=== PATIENT | female | born 1965 | race Caucasian/White ===

== ENCOUNTER 2018-02-03 02:55 | Observation (INO) | payer OTHER ==
[~2018-02-03] VITALS: Ht 157.5 cm; Wt 105.2 kg
[~2018-02-03 02:55] MED LIST: ESCITALOPRAM20 MG PO; ISENTRESS400 MG PO; LABETALOL HCL100 MG PO; PERCOCET 5-3251 EACH PO; PRINZIDE 12.5 M1 TAB PO; SIMVASTATIN20 MG PO; TRUVADA 200 MG-1 TAB PO; ZOFRAN ODT4 MG SL
--- NOTE | 2018-02-03 17:42 | Admission Core Measures ---
Acute Coronary Syndrome (CM) ACS Core Measures Acute Coronary Syndrome Diagnosis No Congestive Heart Failure (NEW) CHF Core Measures Congestive Heart Failure Diagnosis No Cerebrovascular Accident CVA Core Measures CVA/TIA Diagnosis No Venous Thromboembolism VTE Core Maritza (View Protocol) VTE Risk Factors Surgery No Mechanical VTE Prophylaxis d/t N/A MechProphylax Ordered No VTE Pharm Prophylaxis d/t NA PharmProphylax ordered Problem List As ranked by this Provider includes Assessment & Plan 1. Parathyroid adenoma HOME MEDS Home Med List Escitalopram Oxalate 20 MG TAB 1 TAB PO DAILY MENTAL HEALTH (Reported) Hydrochlorothiazide/Lisinopr (Prinzide 12.5 MG-10 MG) 1 TAB TAB 1 TAB PO DAILY HEART (Reported) Labetalol Hydrochloride (Labetalol HCl) 100 MG TAB 1 TAB PO BID HEART ( Reported) Oxycodone HCl/Acetaminophen (Percocet 5-325 MG Tablet) 5 MG-325 MG TABLET 1 TAB PO BID PRN PAIN Simvastatin (Zocor) 20 MG TAB 1 TAB PO QPM CHOLESTEROL (Reported)
[2018-02-03] MEDS ORDERED: PERCOCET 5-3251 EACH PO (17:43)
--- NOTE | 2018-02-03 17:46 | Patient Discharge Instructions ---
Discharge Instructions General Discharge Information You were seen/treated for: Parathyroid adenoma You had these procedures: Excision parathyroid adenoma Watch for these problems: Increasing pain despite the use of pain medication Increasing difficulty swallowing or speaking Difficulty breathing. Increasing redness or drainage from incision Fever greater than 101.5 Do not soak the wound: Yes Other wound care: Keep wound clean and dry Diet Continue normal diet: Yes Recommended Diet: Diabetic Activity Full Activity/No Limits: No Activity Self Limited: Yes Pounds, do NOT lift more than: 20 Acute Coronary Syndrome Inclusion Criteria At DC or during hospital stay patient has or had the following: ACS DIAGNOSIS No Discharge Core Measures Meds if any: Prescribed or Continued at Discharge Meds if any: NOT Prescribed or Continued at Discharge Congestive Heart Failure Inclusion Criteria At DC or during hospital stay patient has or had the following: CHF DIAGNOSIS No Discharge Core Measures Meds if any: Prescribed or Continued at Discharge Meds if any: NOT Prescribed or Continued at Discharge Cerebrovascular accident Inclusion Criteria At DC or during hospital stay patient has or had the following: CVA/TIA Diagnosis No Discharge Core Measures Meds if any: Prescribed or Continued at Discharge Meds if any: NOT Prescribed or Continued at Discharge Venous thromboembolism Inclusion Criteria VTE Diagnosis No VTE Type NONE VTE Confirmed by (Test) NONE Discharge Core Measures - Per Current guidelines, there needs to be overlap - treatment for the first 5 days of Warfarin therapy. - If discharged on Warfarin prior to 5 days of - overlap therapy, the patient will need to be - assessed for post discharge needs including - *Post discharge parental anticoagulation - *Warfarin and/or parental anticoagulation education - *Follow up date to check INR post discharge At least 5 days overlap therapy as Inpatient No Meds if any: Prescribed or Continued at Discharge Note: Overlap Therapy is Warfarin and Anticoagulant Meds if any: NOT Prescribed or Continued at Discharge
--- NOTE | 2018-02-03 19:09 | PN- General Surgery ---
Subjective Subjective: POC Pt recovering in PACU. Only complaint is throat soarness, worse when she swallings, she thinks its from the ET tube. Minimal pain at incision. Denies CP/SOB,LEWIS or dizziness. No N/V. Feelins hungry Objective Vital Signs and I&Os Intake & Output 02/03 1600 02/03 0800 02/03 0000 02/02 1600 02/02 0800 02/02 0000 Intake Total Output Total Balance Patient 230 lb Weight VSS, afebrile Physical Exam: gen- NAD neck- dressing clean and dry, no swelling resp- clear cardiac-RRR Current Medications: Current Medications Sig/Sultana Start time Last Medication Dose Route Stop Time Status Admin Cefazolin Sodium 2,000 MG ONCE 02/03 0000 NR IV 02/03 2359 Fentanyl Citrate 0 .STK-MED ONE 02/03 1039 DC .ROUTE Hydromorphone HCl 0 .STK-MED ONE 02/03 1039 DC .ROUTE Midazolam HCl 0 .STK-MED ONE 02/03 1039 DC .ROUTE Results Last 48 Hours of Labs: Laboratory Tests 02/03 02/03 02/03 02/03 1750 1610 1355 0856 Chemistry Calcium (8.4 - 10.2 mg/dL) 9.7 Albumin (3.5 - 5.0 g/dL) 4.0 PTH Intact (18.4 - 80.1 pg/ML) 24.3 179.4 H 97.5 H Assessment/Plan Assessment/Plan 52yo F with hx of diabetes, htn and hld now SP parathyroidectomy for parathyroid adenoma POD0. stable. post-op calcium level 9.7. To stay for observation to watch for hypocalcimia check calcium levels Q8h x3 clear liquids tonight, can advance as tolerated in AM if no overnight issues sanedrs management dvt ppx- alps and hsq 24h amparo-op abx- ancef dc planning- likely home tomorrow Core Measures Venous Thromboembolism VTE Risk Factors Surgery No Mechanical VTE Prophylaxis d/t N/A MechProphylax Ordered No VTE Pharm Prophylaxis d/t NA PharmProphylax ordered
[2018-02-03 19:30] VITALS: BP 130/70
[2018-02-03 21:39] VITALS: BP 142/96
--- NOTE | 2018-02-03 22:48 | Operative Report ---
Operative/Inv Procedure Report Surgery Date: 02/03/18 Name of Procedure: Parathyroidectomy (left superior) Pre-Operative Diagnosis: primary hyperparathyroidism Post-Operative Diagnosis: same Estimated Blood Loss: scant Surgeon/Rib Stiffener And Heel Dipper: Robert SALGADO,Young ABEL Anesthesia: general endotracheal tube Operative/Procedure Note Note: Patient was placed on the OR table supine, over the thyroid bar, after successful induction of general anesthesia and the timeouts, and setting up the NIMS electrodes for monitoring, the patient's neck from chin to chest were clipped prepped and draped in the usual sterile fashion. A PTH level was drawn at this time. We had already marked a skin crease near the cricoid in Same Day, and then infiltrated local anesthetic and then made this incision with a 15 blade, extending within the medial borders of the sternocleidomastoid muscles, but tending towards the left. The incision was deepened through the subcutaneous fat and subplatysmal flaps, preserving the underlying anterior jugular veins, were made superiorly to the thyroid cartilage and inferiorly not quite to the sternal notch. The midline was identified between the strap muscles and opened vertically and then using an Allis clamp first, the sternohyoid and then the sternal thyroid muscles were and then retracted laterally to the left, off the thyroid towards the carotid sheath, we were limited by the patient's body habitus she was overweight very "deep" neck I had to divide part of the sternal thyroid muscle tubular to clear off the left lobe of the thyroid gland, at this point the dissection was continued using the Harmonic scalpel, and bipolar. Once we identified the lateral border of the left lobe we were able to free it up a little bit without dividing major vessels and rotated medially and it took some time initially but plastered within the capsule posterior medially in the mid to upper lobe we found the parathyroid adenoma which was lobulated, kidney-shaped with a little bit of fat peripherally, and very fragile I felt we preserved it intact once we opened that the thin posterior capsule the procedure became easier, the diameter was about 2 cm, we gently dissected circumferentially preserving the blood supply, also avoiding the recurrent nerve which was close here, and then before excising we had anesthesia draw another PTH, then we excised it and sent it to pathology, and josep another level in 10 min. The highest preexcision level was 179.4, then it dropped to 24.3 after, more than 80%, indicating success. So we checked for hemostasis and then closed by first reapproximating the divided sternothyroid muscle, then the strap muscles over the trachea in the middle paying care not to injure those jugular veins on either side, and then the platysma was reapproximated with a running 3- 0 Vicryl suture as well, then the skin was reapproximated with a running subcuticular 4-0 Biosyn suture followed by Mastisol Steri-Strips Telfa and Tegaderm. Estimated blood loss was minimal lap and sponge counts were correct wound expectancy was clean, IV fluids crystalloid, complications none, patient tolerated the procedure well was awakened extubated and returned to the recovery room in satisfactory condition where once more awake, was able to phonate without any significant hoarseness.
[2018-02-03 23:08] VITALS: BP 114/70
[2018-02-04 01:40] VITALS: BP 140/64
[2018-02-04 06:55] VITALS: BP 130/64
--- NOTE | 2018-02-04 07:54 | PN- General Surgery ---
See Addendum Subjective Subjective: No acute events overnight, no pain, no difficulty swallowing, no hoarseness of her voice. Tolerating p.o. fluids Objective Vital Signs and I&Os Vital Signs Date Time Temp Pulse Resp B/P B/P Pulse O2 O2 Flow FiO2 Mean Ox Delivery Rate 02/04 0655 98.0 70 18 130/64 96 02/04 0140 98.3 70 18 140/64 96 02/04 0000 94 Nasal 3.0L Cannula 02/03 2308 98.1 69 18 114/70 94 Nasal 3.0L Cannula 02/03 2141 73 142/96 02/03 2139 99.0 73 18 142/96 97 Nasal 3.0L Cannula 02/03 1930 98.5 76 18 130/70 94 Nasal 3.0L Cannula 02/03 1914 Nasal 3.0L Cannula Intake & Output 02/04 0800 02/04 0000 02/03 1600 02/03 0800 02/03 0000 02/02 1600 Intake Total 970 200 Output Total 50 200 Balance 920 0 Intake, IV 850 Intake, Oral 120 200 Output, Urine 50 200 Patient 232 lb 230 lb Weight Physical Exam: Well-developed well-nourished no apparent distress. HEENT: Atraumatic, extraocular motion intact Neck: Supple, no lymphadenopathy. Dressing clean dry and intact, minimal swelling of the anterior neck region, no erythema, no drainage, no bleeding Voice is normal, trachea midline Respiratory: No respiratory distress Extremities: No edema, no calf pain Neuro: Alert and oriented x3 Psych: Mood affect normal, normal memory normal judgment. Skin: Warm and dry, no rash on exposed skin Current Medications: Current Medications Sig/Sultana Start time Last Medication Dose Route Stop Time Status Admin Acetaminophen 1,000 MG Q8H 02/03 2045 AC 02/04 IV 02/05 2044 0526 Atorvastatin Calcium 10 MG 1700 02/04 1700 AC PO Cefazolin Sodium 2 GM IQ8 02/04 0000 AC 02/03 N/A 1 UNIT IV 02/04 829 2350 Cefazolin Sodium 2,000 MG ONCE 02/03 0000 DC IV 02/03 235 Docusate Sodium 100 MG BID 02/03 2100 AC 02/03 PO 2141 Escitalopram Oxalate 20 MG DAILY 02/04 0900 AC PO Fentanyl Citrate 0 .STK-MED ONE 02/03 1039 DC .ROUTE Heparin Sodium 5,000 UNIT Q8 02/04 0600 AC 02/04 (Porcine) SC 0533 Hydrochlorothiazide 12.5 MG DAILY 02/04 0900 AC PO Hydromorphone HCl 0 .STK-MED ONE 02/03 1039 DC .ROUTE Labetalol HCl 100 MG BID 02/03 2100 AC 02/03 PO 2141 Lisinopril 10 MG DAILY 02/04 0900 AC PO Metformin HCl 1,000 MG 0800,1700 02/04 08 AC PO Midazolam HCl 0 .STK-MED ONE 02/03 1039 DC .ROUTE Ondansetron HCl 4 MG Q6P PRN 02/03 1915 AC IV Oxycodone HCl 5 MG Q4P PRN 02/03 1915 AC PO Oxycodone HCl 10 MG Q4P PRN 02/03 1915 AC PO Polyethylene Glycol 17 GM DAILY 02/03 1736 AC 02/03 PO 1946 Sodium Chloride 1,000 ML .[id number] 02/03 1915 AC 02/03 IV 1959 Results Last 48 Hours of Labs: Laboratory Tests 02/04 02/03 02/03 02/03 02/03 0719 2243 1750 1610 1355 Chemistry Sodium Pending Potassium Pending Chloride Pending Carbon Dioxide Pending Anion Gap Pending BUN Pending Creatinine Pending BUN/Creatinine Ratio Pending Calcium (8.4 - 10.2 mg/dL) Pending 9.8 9.7 Albumin (3.5 - 5.0 g/dL) Pending 4.3 4.0 PTH Intact (18.4 - 80.1 pg/ML) 24.3 179.4 H Hematology CBC w Diff Pending WBC Pending RBC Pending Hgb Pending Hct Pending MCV Pending MCH Pending MCHC Pending RDW Pending Plt Count Pending MPV Pending 02/03 0856 Chemistry PTH Intact (18.4 - 80.1 pg/ML) 97.5 H Assessment/Plan Assessment/Plan 52yo F with hx of diabetes, htn and hld now SP parathyroidectomy for parathyroid adenoma POD1. stable. Continue with observation to watch for hypocalcimia check calcium levels Q8h x3 Regular diet Tylenol for pain dvt ppx- alps and hsq DC home today if labs acceptable Core Measures Venous Thromboembolism VTE Risk Factors Surgery No Mechanical VTE Prophylaxis d/t N/A MechProphylax Ordered No VTE Pharm Prophylaxis d/t NA PharmProphylax ordered
[2018-02-04] MEDS ORDERED: TYLENOL EXTRA500 M2 PO (07:55)
[2018-02-04 08:38] LABS: ABSOLUTE BASOPHIL COUNT 0 /CUMM (0.0-0.2); ABSOLUTE EOSINOPHIL COUNT 0.1 /CUMM (0.0-0.7); ABSOLUTE GRANULOCYTE CT 7.4 /CUMM (1.4-6.5); ABSOLUTE LYMPH COUNT 0.8 /CUMM (1.2-3.4); ABSOLUTE MONOCYTE COUNT 0.2 /CUMM (0.10-0.60); BASOPHIL % 0.1 % (0.0-2.0); EOSINOPHIL % 0.8 % (0-5); HEMATOCRIT 36.6 % (37-47); MEAN CORPUSCULAR HGB 28.6 PG (27.0-31.0); MEAN CORPUSCULAR HGB CONC 33.6 G/DL (33.0-37.0); MEAN CORPUSCULAR VOLUME 85.1 FL (81.0-99.0); MEAN PLATELET VOLUME 7.9 FL (7.4-10.4); PLATELET COUNT 296 /CUMM (130-400); RBC DISTRIBUTION WIDTH 14.2 % (11.5-14.5); WHITE BLOOD CELL COUNT 8.6 /CUMM (4.8-10.8)
[2018-02-04 09:47] LABS: GRANULOCYTE % 86.9 % (42.2-75.2)
[2018-02-04 10:11] VITALS: BP 116/70
[2018-02-04] MEDS ORDERED: PERCOCET 5-3251 EACH PO (12:49)
[2018-02-04 14:23] VITALS: BP 130/72
== END 2018-02-04 15:20 ==
LOC: STS 02:55 → EDSTATUS 07:00 → PACUH 16:47 → ENRESERV 18:22 → ENTRNSPT 18:53 → EDTRNSPT 19:04 → EDTRNSPTSTS 19:04 → 2NB 19:09 → CMPTRNSPT 19:19 → ENPENDDIS 02-04 09:45 → ENTRNSPT 02-04 14:50 → EDTRNSPT 02-04 15:17 → EDTRNSPTSTS 02-04 15:17 → 2NB 02-04 15:20 → CMPTRNSPT 02-04 15:31
PROVIDERS: Nurse Practitioner
DX: D35.1 Benign neoplasm of parathyroid gland (principal); E78.5 Hyperlipidemia, unspecified; I10 Essential (primary) hypertension; E11.9 Type 2 diabetes mellitus without complications; F32.9 Major depressive disorder, single episode, unspecified
CPT/HCPCS: 1328; 1530; 1748; 6040; 36415; 82436; 88305; 96361; 96372; 96374; 96375; 96376; G0378; J0131; J0690; J1644; J2250